=== PATIENT | male | born 1930 | race Caucasian/White ===

== ENCOUNTER 2017-12-11 07:54 | Emergency (ER) | payer MEDICARE, OTHER ==
[~2017-12-11] VITALS: Ht 182.9 cm; Wt 99.8 kg
[~2017-12-11 07:54] MED LIST: ALDACTAZIDE 251 EACH PO; ASPIRIN EC325 MG PO; ATENOLOL100 MG PO; GLIPIZIDE XL10 MG PO; LEVOTHYROXINE75 MCG PO; MACULAR VITAMI1 EACH PO; MELADOX3 MG PO; METFORMIN HCL1000 MG PO; SIMVASTATIN80 MG PO; SPIRONOLACTONE50 MG PO; VITAMIN D2000 UNI1 PO
[2017-12-11] MEDS ORDERED: TAMIFLU75 MG PO (08:44)
[2017-12-11] MEDS ORDERED: LEVAQUIN500 MG PO (08:44)
[2017-12-11] MEDS ORDERED: CIPRO500 MG PO (09:07)
== END 2017-12-11 09:33 | disposition home or self-care (01) ==
LOC: ED 07:54
DX: J18.9 Pneumonia, unspecified organism (principal); E11.40 Type 2 diabetes mellitus with diabetic neuropathy, unspecified; I10 Essential (primary) hypertension; E03.9 Hypothyroidism, unspecified; F03.90 Unspecified dementia, unspecified severity, without behavioral disturbance, psychotic disturbance, mood disturbance, and anxiety; Z79.84 Long term (current) use of oral hypoglycemic drugs; Z79.899 Other long term (current) drug therapy
CPT/HCPCS: 71045; 99284

== ENCOUNTER 2019-02-22 01:17 | Emergency (ER) | payer MEDICARE, OTHER ==
[~2019-02-22] VITALS: Ht 182.9 cm; Wt 99.8 kg
[~2019-02-22 01:17] MED LIST changes: +CIPRO500 MG PO; +LEVAQUIN500 MG PO; +TAMIFLU75 MG PO
[2019-02-22] MEDS ORDERED: TYLENOL325 M1 PO (01:34)
[2019-02-22] MEDS ORDERED: VITAMIN D-32000 UNIT PO (01:34)
== END 2019-02-22 02:00 | disposition home or self-care (01) ==
LOC: ED 01:17
DX: S00.03XA Contusion of scalp, initial encounter (principal); D64.9 Anemia, unspecified; I10 Essential (primary) hypertension; E03.9 Hypothyroidism, unspecified; E78.6 Lipoprotein deficiency; E11.40 Type 2 diabetes mellitus with diabetic neuropathy, unspecified; Z79.84 Long term (current) use of oral hypoglycemic drugs; Z79.899 Other long term (current) drug therapy; W18.30XA Fall on same level, unspecified, initial encounter
CPT/HCPCS: 99283